=== PATIENT | male | born 1985 ===

== ENCOUNTER → 2024-08-07 | Outpatient (CLI) | payer OTHER ==
[2024-08-10 20:44] LABS: HSV 1 SUBTYPE BY PCR Not Detected; HSV 2 SUBTYPE BY PCR Not Detected; HSV SUBTYPE SOURCE Serum
== END ==
LOC: LAB 11:39 → LAB SHORT 11:39
PROVIDERS: Chiropractor
DX: N48.9 Disorder of penis, unspecified (principal)
CPT/HCPCS: 86592; 87529